=== PATIENT | female | born 1985 | race Caucasian/White ===

== ENCOUNTER 2019-07-22 14:49 | Emergency (ER) | payer BC, SELFPAY ==
--- NOTE | ~2019-07-22 | XR_ITS ---
EXAMINATION: XR ankle RT min 3V EXAM DATE: 07/22/2019 15:21 INDICATION: Initial encounter following injury, with pain of the right ankle. Fell yesterday. TECHNIQUE: Right ankle frontal, lateral and oblique projections obtained and reviewed. There is no p rior study for comparison. FINDINGS: The right ankle mortise appears intact. There are no acute fractures or dislocations iden tified. There is no subcutaneous gas. There is soft tissue swelling over the ankle laterally. Ther e are no radiopaque foreign bodies. IMPRESSION: 1. XR ankle RT min 3V exam without acute osseous findings. Reviewed, dictated and finalized at location B. [facility]
[2019-07-22 15:03] VITALS: BP 147/98; PULSE 82; RESP 18; TEMP 36.6; O2SAT 100
--- NOTE | 2019-07-22 15:23 | ED.LOWEXIN ---
HPI - Extremity Injury (Lower) General Chief Complaint: Extremity Injury, Lower Stated Complaint: Right Ankle Pain Time Seen by Provider: 07/22/19 15:11 Source: patient and RN notes reviewed Mode of arrival: ambulatory Limitations: no limitations History of Present Illness HPI Narrative: Patient presents today complaining of injury to her right ankle that was sustained yesterday while walking down some bleachers at her son's school. States she slipped and rolled the ankle. Reports some intermittent numbness and tingling in the ankle and foot. Currently rates her pain 4/10, which increases with movement and weightbearing. She has been ambulatory with increased pain. She has been taking Tylenol with mild relief. States she does not like cold objects and has not been applying ice. MD complaint: ankle injury Related Data Home Medications Medication Instructions Recorded Confirmed PNV,calcium 58-wlur-kfsxt acid tablet 07/22/19 [ Vitamin Plus Low Iron] aspirin 07/22/19 ergocalciferol (vitamin D2) 07/22/19 famotidine 07/22/19 insulin detemir U-100 [Levemir unit SUBCUT 07/22/19 FlexTouch U-100 Insuln] insulin lispro [Humalog KwikPen unit SUBCUT 07/22/19 Insulin] labetalol 07/22/19 metformin mg PO 07/22/19 montelukast mg 07/22/19 Allergies Allergy/AdvReac Type Severity Reaction Status Date / Time cephalexin Allergy Unknown Unknown Verified 07/22/19 15:12 venlafaxine Allergy Unknown Unknown Verified 07/22/19 15:12 CEPHALEXIN MONOHYDRATE Allergy Intermediate ANAPHALAXIS Uncoded 05/08/18 12:50 VENLAFAXINE HCL Allergy Intermediate RASH Uncoded 05/08/18 12:50 Review of Systems Review of Systems: Narrative: CONSTITUTIONAL: Denies body aches, fever, chills, or sweats. EYES: Denies visual changes, redness, or discharge. ENT: Denies rhinorrhea, congestion, sore throat, or otalgia. CARDIOVASCULAR: Denies chest pain, palpitations, or edema. RESPIRATORY: Denies cough or dyspnea. GASTROINTESTINAL: Denies abdominal pain, nausea, vomiting, or diarrhea. GENITOURINARY: Denies dysuria or hematuria. SKIN: Denies rash, itching, or wounds. MUSCULOSKELETAL: Denies back pain, or myalgia.+ Right ankle injury NEUROLOGIC: Denies headache, or weakness.+ Intermittent numbness and tingling to the right ankle and foot PSYCH: Denies depression or anxiety. [facility] Past Medical History Medical History (Updated 07/22/19 @ 15:39 by Migdalia Huertas, [facility], ) Diabetes Hypertension with history of section, antepartum Surgical History Surgical History (Updated 07/22/19 @ 15:26 by Migdalia Huertas, [facility], ) History of cholecystectomy Family History Family History (Updated 06/08/16 @ 10:17 by DOCTOR UNKNOWN) Mother Hypertension Family history of diabetes mellitus in first degree relative Grandparent Family history of cardiovascular disease Cerebrovascular accident Family history of diabetes mellitus in first degree relative Family history of lung cancer Other Family history of elevated blood lipids Family history of thyroid disease Social History Social History Smoking status: Never smoker Alcohol intake: never Comments At time of signature, I have reviewed and agree with nursing past medical, surgical, social and family history unless otherwise noted. Please see nursing chart for further information. There is no relevant family history pertinent to the presenting complaint Exam Narrative: Exam Narrative: GENERAL: Well-appearing, well-nourished, and in no acute distress. HEAD: Normocephalic, atraumatic. EYES: EOMI. No redness or drainage. Conjunctivae normal. ENT: Mucous membranes pink and moist. NECK: Normal AROM. CHEST: No respiratory distress. EXTREMITIES: Right ankle: Mild tenderness to the medial and lateral malleolus with scant edema. Tenderness to the anterior ankle that is more severe. No bony tenderness to the foot. No ecchymosis or erythema noted.
--- NOTE | 2019-07-22 15:50 | PC.NURSE ---
07/22/2019 1538 Chris wrap applied to right foot and ankle
[2019-07-22 15:51] VITALS: BP 119/58; PULSE 65; RESP 18; TEMP 37.4; O2SAT 100
== END 2019-07-22 15:38 | disposition home or self-care (01) ==
PROVIDERS: Emergency Provider Nurse Practitioner
DX: S93.401A Sprain of unspecified ligament of right ankle, initial encounter (principal); X50.9XXA Other and unspecified overexertion or strenuous movements or postures, initial encounter; X50.0XXA Overexertion from strenuous movement or load, initial encounter; E11.9 Type 2 diabetes mellitus without complications; I10 Essential (primary) hypertension
CPT/HCPCS: 73610; 99213; G0463

== ENCOUNTER 2020-07-18 13:10 | Outpatient (CLI) | payer OTHER, SELFPAY ==
[2020-07-18 14:06] LABS: Alanine Aminotransferase 108 U/L (4-35); Albumin Level 4.7 g/dL (3.5-5.1); Alkaline Phosphatase 64 U/L (38-126); Anion Gap 10 mmol/L (8-16); Aspartate Amino Transferase 55 U/L (14-36); Bilirubin,Total 0.4 mg/dL (0.2-1.3); Blood Urea Nitrogen 10 mg/dL (7-17); Calcium 10.1 mg/dL (8.4-10.2); Carbon Dioxide 24 mmol/L (22-30); Chloride 101 mmol/L (98-107); Estimated Glomerular Filt Rate > 60; Glucose 221 mg/dL (65-105); Potassium 4.5 mmol/L (3.4-5.0); Sodium 135 mmol/L (137-145)
[2020-07-18 14:08] LABS: Hemoglobin A1C 7.9 % (<5.7)
== END 2020-07-18 13:11 | disposition home or self-care (01) ==
PROVIDERS: PCP Family Medicine; Visit Provider Physician Assistant
DX: I10 Essential (primary) hypertension (principal); E11.9 Type 2 diabetes mellitus without complications
CPT/HCPCS: 36415; 80053; 83036

== ENCOUNTER 2020-07-19 12:10 | Observation (INO) | payer OTHER, SELFPAY ==
[2020-07-19] VITALS (22 sets, daily range): BP systolic 104–150; BP diastolic 53–101; PULSE 89–106; RESP 15–22; TEMP 36.1–36.7; O2SAT 91–100; BMI 41.7
--- NOTE | ~2020-07-19 | XR_ITS ---
EXAMINATION: XR abdomen/kub 1V EXAM DATE: 07/19/2020 17:07 INDICATION: Left flank pain left flank pain. TECHNIQUE: Frontal projection(s) of the abdomen for interpretation. Correlation is made to CT scan sa me date. FINDINGS: There is expected amount of colonic stool and gas. No small bowel dilation, nonobstructiv e bowel gas pattern. There are no suspicious calcifications identified. There is no organomegaly suspected. The bones are unremarkable. There are cholecystectomy clips. IMPRESSION: Unremarkable abdomen x-ray exam. Reviewed, dictated and finalized at location A. 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
--- NOTE | ~2020-07-19 | CT_ITS ---
EXAMINATION: CT abdomen pelvis wo con EXAM DATE: 07/19/2020 16:55 INDICATION: Left flank pain. TECHNIQUE: Spiral CT of the abdomen and pelvis was performed without contrast. Axial, coronal and sag ittal images were reviewed. The dose-length product (DLP) for this examination was 718.97 mGy-cm. T he exposure was tailored according to patient size (auto mA exposure control), and iterative reconstr uction (ASIR) was used as additional dose reduction technique. There is no prior study for compariso n. FINDINGS: There is punctate right calyceal stone. No ureteral stones or hydronephrosis. The uterus i s anteverted and morphologically normal. The bladder is undistended at time of imaging. There is h epatic steatosis without suspicious focal lesion identified. Spleen, adrenal glands, pancreas are unr emarkable. There are cholecystectomy clips. There is no retroperitoneal or pelvic lymphadenopathy. The appendix is not positively visualized. There is no pericecal inflammatory change to suggest appe ndicitis. The stomach and small bowel are unremarkable. There is expected amount of colonic stool. No free intraperitoneal gas. The heart is normal in size. There are no pericardial or pleural e ffusions. There is 4 mm right lower lobe noncalcified granuloma unchanged. Several smaller granuloma s. There are no significant osseous abnormalities identified. IMPRESSION: 1. Punctate right nephrolithiasis. No hydronephrosis or acute findings. 2. Hepatic steatosis. Reviewed, dictated and finalized at location A. NCE WHEEL FACER
--- NOTE | ~2020-07-19 | XR_ITS ---
EXAMINATION: XR chest 1V portable INDICATION: Chest pain TECHNIQUE: Portable AP chest at 1257 hours COMPARISON: 05/08/2018 FINDINGS: The lungs are free of acute opacities. There is no pleural effusion or pneumothorax. The ca rdiomediastinal silhouette is normal. The visualized osseous structures are unremarkable. IMPRESSION: 1. No acute cardiopulmonary abnormality. Reviewed, dictated and finalized at location A. UCTION FLOATER
--- NOTE | 2020-07-19 12:12 | ECG_ITS ---
Measurements Intervals Orting Rate: 102 P: 24 IN: 180 QRS: 14 QRSD: 76 T: 11 QT: 317 QTc: 414 Interpretive Statements SINUS TACHYCARDIA BORDERLINE R WAVE PROGRESSION, ANTERIOR LEADS BASELINE ARTIFACT- I, II, III, AVL, AVF BORDERLINE ECG Electronically Signed On 07-19-2020 16:22:51 SURFACE MOUNT TECHNOLOGY OPERATOR by Catracho Reardon D.O.
--- NOTE | 2020-07-19 12:31 | ED.GENADULT ---
HPI - General Adult General Chief complaint: Recheck/Abnormal Lab/Rx Stated complaint: CP, DIZZY, HIGH BS Time Seen by Provider: 07/19/20 12:21 Source: patient Mode of arrival: ambulatory Limitations: no limitations History of Present Illness HPI narrative: 34 years old white female presents with sudden onset of left upper chest pain, left upper extremity numbness, left visual pain, lightheadedness and dizziness started 1 hour prior to arrival to the emergency room. At rest. Patient was in the voodoo at that time. Patient denies having similar symptoms, nausea, vomiting, shortness of breath, back pain. History of diabetes, hypertension, obesity. Strong family history of coronary artery disease, mother and father. Patient denies any new stress or new physical activities. Patient denies aggravating or relieving factors of her pain. Patient denies smoking, drinking or using drugs. Patient tested positive for COVID-14 May 2020. Related Data Home Medications Medication Instructions Recorded Confirmed PNV,calcium 48-fsvw-xipuw acid 1 tablet PO DAILY 07/22/19 07/22/19 [ Vitamin Plus Low Iron] famotidine 40 mg PO HS 07/22/19 07/22/19 metformin 1,000 mg PO BID 07/22/19 07/22/19 cariprazine 1.5 mg capsule 1.5 mg PO DAILY 04/16/20 cholecalciferol (vitamin D3) 1,250 1,250 mcg PO WEEKLY 04/16/20 mcg (50,000 unit) capsule clonazepam 0.5 mg tablet 0.5 mg PO DAILY 04/16/20 lamotrigine 100 mg tablet 100 mg PO DAILY 04/16/20 Allergies Allergy/AdvReac Type Severity Reaction Status Date / Time cephalexin [From Keflex] Allergy Mild Unknown Verified 04/17/20 08:58 venlafaxine [From Effexor] Allergy Mild Unknown Verified 04/17/20 08:58 CEPHALEXIN MONOHYDRATE Allergy Intermediate ANAPHALAXIS Uncoded 04/17/20 08:58 VENLAFAXINE HCL Allergy Intermediate RASH Uncoded 04/17/20 08:58 Review of Systems Review of Systems: Narrative: CONSTITUTIONAL: Denies fever, chills, or sweats. EYES: Denies visual changes, redness, or discharge. ENT: Denies rhinorrhea, congestion, sore throat, or otalgia. CARDIOVASCULAR: Denies chest pain, palpitations, or edema. RESPIRATORY: Denies cough or dyspnea. GASTROINTESTINAL: Denies abdominal pain, nausea, vomiting, or diarrhea. GENITOURINARY: Denies dysuria or hematuria. SKIN: Denies rash or itching. MUSCULOSKELETAL: Denies back pain, joint pain, or myalgia. NEUROLOGIC: Denies headache, numbness, or weakness. PSYCHIATRIC: Denies anxiety or depression. PMFSH Past Medical History Medical History Bipolar 1 disorder delivery delivered Diabetes Gallbladder & bile duct stone with obstruction Hypertension with history of section, antepartum Surgical History Surgical History H/O removal of cyst History of cholecystectomy Family History Family History Mother Hypertension Diabetes mellitus Asthma Depression Anxiety Heart disease Father Diabetes mellitus Hypertension Kidney disease Heart disease Heart attack Mother Hypertension Family history of diabetes mellitus in first degree relative Grandparent Family history of cardiovascular disease Cerebrovascular accident Family history of diabetes mellitus in first degree relative Family history of lung cancer Other Family history of elevated blood lipids Family history of thyroid disease Social History Social History Smoking status: Never smoker Smokeless tobacco user: other Second hand tobacco smoke exposure: No Alcohol intake: never Substance use: unknown Gender identity (if verbalized by the patient): Female Spiritual care concerns: No Exam Narrative: Exam Narrative: General appearance: Well-developed, well-nourished Skin: Normal color Head: Normocephalic, nontraumati
[2020-07-19 12:35] LABS: Basophils Absolute Auto 0.1 K/mm3 (0.0-0.1); Basophils Percent Auto 0.6 % (0.2-1.2); Eosinophils Absolute Auto 0.1 K/mm3 (0-0.3); Eosinophils Percent Auto 1.4 % (0-4.4); Hemoglobin 11.2 g/dL (12.0-15.0); Immature Granulocyte Absolute 0.02 K/mm3 (0.00-0.031); Immature Granulocyte Percent A 0.2 % (0-0.5); Lymphocytes Absolute Auto 2.66 K/mm3 (0.9-3.2); Lymphocytes Percent Auto 28.7 % (18.3-44.2); Mean Corpuscular Hemoglobin 24.8 pg (26-34); Mean Corpuscular Volume 77.6 fl (80-100); Mean Platelet Volume 10.1 fl (7.4-10.4); Monocytes Absolute Auto 0.6 K/mm3 (0.1-0.6); Monocytes Percent Auto 6.5 % (2.6-8.5); Neutrophils Absolute Auto 5.8 K/mm3 (1.3-6.7); Neutrophils Percent Auto 62.6 % (45.5-73.1); Platelet Count Result 459 k/mm3 (150-375); Red Blood Count 4.51 M/mm3 (4.2-5.4); Red Cell Distribution Width 14.6 % (11.5-14.5); White Blood Count 9.3 K/mm3 (4.5-10.0)
[2020-07-19] MEDS: ASPIRIN 81 MG CHEWABLE TABLET 324 MG PO (12:52)
[2020-07-19] MEDS: ONDANSETRON INJ 4 MG/2 ML VIAL IV PUSH (12:52)
[2020-07-19] MEDS: MORPHINE SULFATE (*CRX) 4 MG/ML INJ IV PUSH ×3 (12:52→21:04)
[2020-07-19 13:06] LABS: Alanine Aminotransferase 109 U/L (4-35); Albumin Level 4.7 g/dL (3.5-5.1); Alkaline Phosphatase 62 U/L (38-126); Anion Gap 12 mmol/L (8-16); Aspartate Amino Transferase 67 U/L (14-36); Bilirubin,Total 0.8 mg/dL (0.2-1.3); Blood Urea Nitrogen 14 mg/dL (7-17); Calcium 9.6 mg/dL (8.4-10.2); Carbon Dioxide 24 mmol/L (22-30); Chloride 99 mmol/L (98-107); Estimated CRCL calculation 157 ml/min; Estimated Glomerular Filt Rate > 60; Glucose 235 mg/dL (65-105); Potassium 4.7 mmol/L (3.4-5.0); Sodium 135 mmol/L (137-145)
[2020-07-19 13:11] LABS: Troponin I < 0.012 ng/mL (0.000-0.034)
[2020-07-19 13:35] LABS: Glucose Point of Care 230 (65-105)
[2020-07-19 13:49] LABS: Prothrombin Time 13.7 Seconds (11.1-14.7)
[2020-07-19 13:50] LABS: Partial Thromboplastin Time 28.7 SECONDS (22.3-36.8)
[2020-07-19 14:15] LABS: D Dimer 0.27 ug/mL (<0.48)
[2020-07-19] MEDS: INSULIN HUMAN REGULAR (*BKC) 100 UNITS/ML 6 UNITS SUB-Q (14:51)
[2020-07-19 15:30] LABS: Add Urine Microscopic? YES; Appearance Urine Clear (Clear); Bacteria Urine Trace /hpf; Bilirubin Urine Negative (Negative); Blood Urine Negative (Negative); Color Urine Yellow (Yellow); Glucose Urine UA Negative (Negative); Ketones Urine Trace mg/dL (Negative); Leukocyte Esterase Ur Negative LEU/UL (Negative); Mucus Urine Few /lpf; Nitrate Urine Negative (Negative); Protein Urine 2+ mg/dL (Negative); RBC Urine 0-2 /hpf (0-2); Squamous Epithelial Cell Urine Moderate /hpf (Few); Urobilinogen Urine Negative mg/dL (<2.0); WBC Urine 0-3 /hpf
[2020-07-19 15:59] LABS: Specific Grav Ur 1.034 (1.001-1.035)
--- NOTE | 2020-07-19 16:00 | WPDCN ---
Assessment and Plan Assessment and plan (1) Atypical chest pain: Code(s): R07.89 - Other chest pain Status: Acute (2) Nephrolithiasis: Code(s): N20.0 - Calculus of kidney Status: Acute (3) Hypertension: Qualifiers: Hypertension type: essential hypertension Qualified Code(s): I10 - Essential (primary) hypertension Code(s): I10 - Essential (primary) hypertension Status: Acute (4) Type 2 diabetes mellitus: Code(s): E11.9 - Type 2 diabetes mellitus without complications Status: Inactive (5) Anxiety: Code(s): F41.9 - Anxiety disorder, unspecified Status: Inactive (6) Gastroesophageal reflux disease: Code(s): K21.9 - Gastro-esophageal reflux disease without esophagitis Status: Inactive (7) Bipolar 1 disorder: Code(s): F31.9 - Bipolar disorder, unspecified Status: Acute (8) Elevated LFTs: Code(s): R79.89 - Other specified abnormal findings of blood chemistry Status: Acute (9) Microcytic anemia: Code(s): D50.9 - Iron deficiency anemia, unspecified Status: Acute Additional Plan The patient has been admitted to Dr. Taveras (cardiology) with chest pain, atypical for cardiac pain although she does have risk factors. Will continue to trend troponins and monitor on telemetry overnight. She then developed left-sided flank pain and in the setting of hematuria, as CT of the abdomen and pelvis was obtained which demonstrated punctate right nephrolithiasis which does not correlate with her symptoms. I am wondering if this is more musculoskeletal in etiology. In any event, her glucose has not been very well controlled recently for unclear reasons, with the most recent hemoglobin A1c of 7.9%. She may need the addition of another oral medication but I will defer that to her primary care provider. In the interim we will initiate sliding scale insulin, Accu-Cheks, and hypoglycemic protocol. Her blood pressures were reviewed and they are stable. LFTs are bit elevated, likely due to hepatic steatosis noted on imaging. She has a mild microcytic anemia, thus will check iron studies although she is a menstruating female and may simply be due to that. Thank you for allowing us to participate in this patient's care. Please do not hesitate to contact us with any questions. We will follow with you. Supervising physician for this medical consultation is Dr. Michael Daniels. This document was completed by using [employer] speech recognition software, therefore senior research project manager variances may occur. Despite proofreading, typographical errors may also occur. HPI Data of Consult Date/Time: 07/19/20 16:00 Requesting Physician: Jhon Taveras MD Primary Care Provider: Melani Lyles MD Consult Narrative Narrative: This is a 34-year-old morbidly obese female with type 2 diabetes mellitus, hypertension, and GERD who presented to the emergency department earlier today from home with complaints of left-sided chest pain radiating to the jaw and arm. Given her risk factor in the setting of chest pain, she was admitted to Dr. Taveras (cardiology) to rule out acute coronary syndrome. The hospitalist service has been consulted for management of her medical conditions. She was at worship this morning when she suddenly developed stabbing, left upper chest pain. She had some numbness and tingling in the left side of her jaw and left upper extremity at the same time and was also feeling a bit short of breath with nausea and dizziness. She goes on to say that she has felt ?off? for approximately 1 week and has noted that her glucose is much higher than usual, as high as 310 earlier in the week. At the time my evaluation she is not having any active chest discomfort but instead has sharp, stabbing pain in the left flank and she has also noticed hematuria. With further questioning, she does have a history of kidney stones and is rating this
[2020-07-19] MEDS: ENOXAPARIN 120 MG/0.8 ML SYRINGE 110 MG SUB-Q (16:27)
[2020-07-19 17:45] LABS: Troponin I < 0.012 ng/mL (0.000-0.034)
--- NOTE | 2020-07-19 18:07 | ADMGEN ---
This patient, Nina Aguilera, was admitted to [facility] OVERFLOW STATUS. ARRIVES VIA TO [facility] AT 1807. Patient/family oriented to hospital policies and general routines including ID bracelet, bed and alarms, visiting hours, pain management, procedures, bathroom and other care routines, personal items, smoking policy, room service/diet, and visiting hours. Information on how to activate the Rapid Response Team has been discussed. Patient/Family are encouraged to report perceived risks to care and to ask questions if they do not understand what they are told or what they should do.
[2020-07-19 19:24] LABS: Glucose Point of Care 157 (65-105)
[2020-07-19 19:26] LABS: Troponin I < 0.012 ng/mL (0.000-0.034)
[2020-07-19] MEDS: LABETALOL HCL 100 MG TABLET 300 MG PO (22:30)
[2020-07-19] MEDS: PANTOPRAZOLE 40 MG TABLET PO (22:30)
[2020-07-19] MEDS: lamoTRIgine 100 MG TABLET PO (22:30)
[2020-07-19] MEDS: MONTELUKAST SODIUM 10 MG TABLET PO (22:30)
[2020-07-19 22:45] LABS: Immature Reticulocyte Fraction 30.1 % (3.0-15.9); Reticulocyte Hemoglobin Conten 24.6 pg (28.2-35.7); Reticulocyte Percent 1.83 % (0.7-4.3); Reticulocytes Absolute 0.08 B/L (32.2-175.7)
[2020-07-19 23:36] LABS: Iron 57 ug/dL (37-170)
[2020-07-19 23:46] LABS: Percent Iron Saturation 11 % (20-50)
[2020-07-20] VITALS (31 sets, daily range): BP systolic 112–157; BP diastolic 68–100; PULSE 84–106; RESP 12–19; TEMP 36.3–36.9; O2SAT 96–100
[2020-07-20 00:06] LABS: Folic Acid > 20.0 ng/mL (2.76->20)
[2020-07-20 00:13] LABS: Ferritin 9.91 ng/mL (6.24-137)
[2020-07-20] MEDS: MORPHINE SULFATE (*CRX) 4 MG/ML INJ IV PUSH ×3 (00:13→08:40)
[2020-07-20 06:15] LABS: Hematocrit 32.6 % (37.0-47.0); Hemoglobin 10.3 g/dL (12.0-15.0); Mean Corpuscular HGB Conc 31.6 g/dl (32-36); Mean Corpuscular Hemoglobin 24.1 pg (26-34); Mean Corpuscular Volume 76.3 fl (80-100); Mean Platelet Volume 10.3 fl (7.4-10.4); Platelet Count Result 456 k/mm3 (150-375); Red Blood Count 4.27 M/mm3 (4.2-5.4); Red Cell Distribution Width 14.6 % (11.5-14.5); White Blood Count 8.2 K/mm3 (4.5-10.0)
[2020-07-20 06:24] LABS: Alanine Aminotransferase 122 U/L (4-35); Albumin Level 4.3 g/dL (3.5-5.1); Alkaline Phosphatase 61 U/L (38-126); Anion Gap 10 mmol/L (8-16); Aspartate Amino Transferase 91 U/L (14-36); Bilirubin,Total 0.8 mg/dL (0.2-1.3); Blood Urea Nitrogen 15 mg/dL (7-17); Calcium 8.5 mg/dL (8.4-10.2); Carbon Dioxide 27 mmol/L (22-30); Chloride 94 mmol/L (98-107); Estimated CRCL calculation 159 ml/min; Estimated Glomerular Filt Rate > 60; Glucose 198 mg/dL (65-105); Magnesium 1.4 mg/dL (1.6-2.3); Potassium 4.2 mmol/L (3.4-5.0); Sodium 131 mmol/L (137-145)
[2020-07-20] MEDS: ASPIRIN 81 MG ENTERIC TABLET PO (08:40)
[2020-07-20] MEDS: lisinopriL 5 MG TABLET PO (08:40)
[2020-07-20] MEDS: ARIPiprazole 2 MG TABLET PO (08:40)
[2020-07-20] MEDS: MULTIVITAMINS THERAPEUTIC TAB (*BKC) 1 TABLET PO (08:40)
[2020-07-20] MEDS: lamoTRIgine 100 MG TABLET PO ×2 (08:40→21:04)
[2020-07-20] MEDS: LABETALOL HCL 100 MG TABLET 300 MG PO ×2 (08:41→21:04)
[2020-07-20] MEDS: NITROGLYCERIN SL 0.4 MG TABLET SUBLINGUAL (09:30)
--- NOTE | 2020-07-20 09:30 | PM.IMHP ---
H&P: HPI History of Present Illness Date/Time: 07/20/20 09:30 Chief Complaint: Chest pain Narrative: Nina Aguilera is a 34 year old female with history of morbid obesity, HTN, DM since 2006, CVA (no deficits, incidental finding on MRI) who presents with chest pain. pain started at noon yesterday, felt like pressure, heaviness as someone sitting on her chest that radiates to the left arm and up to the jaw. It is associated with dyspnea and diaphoresis. Since then she continues to have the chest pain but it has improved after received morphine. She was seen previously by Dr Albright in Apr 2018 for chest pain and at that time she underwent stress echo with no ischemia. Also had Holter that showed sinus tachycardia and run of 10 beats of NSVT. She used to weigh 350 pounds, now down to 240 pounds Never smoker. Her mother had stents in her 40s. Review of Systems Review of Systems: All systems reviewed & are unremarkable except as noted in HPI and below Constitutional: Constitutional: Denies fatigue and Denies headache(s) Eyes: Eyes: Denies blurry vision ENT: Reports Normal hearing present and Denies headache(s) Cardiovascular: Cardiovascular: Denies chest pain, Denies diaphoresis, Denies pedal edema, Denies leg edema, Denies lightheadedness, Denies palpitations and Denies dyspnea Respiratory: Respiratory: Denies cough and Denies dyspnea Gastrointestinal: Gastrointestinal: Denies abdominal pain Musculoskeletal: Musculoskeletal: Denies back pain Neurologic: Reports Normal hearing present and Denies headache(s) Psychiatric: Psychiatric: Denies anxiety Endocrine: Endocrine: Denies fatigue and Denies palpitations [facility] Past Medical History Medical History (Updated 07/19/20 @ 22:19 by Flora Mckenna PA-C) Anxiety Bipolar 1 disorder Gastroesophageal reflux disease Hypertension Type 2 diabetes mellitus Hemoglobin A1c was 7.9% on 07/18/2020. Surgical History Surgical History (Updated 07/19/20 @ 22:13 by Flora Mckenna PA-C) History of 3 sections History of cholecystectomy History of dilation and curettage History of right oophorectomy Family History Family History Mother Hypertension Diabetes mellitus Asthma Depression Anxiety Heart disease Father Diabetes mellitus Hypertension Kidney disease Heart disease Heart attack Mother Hypertension Family history of diabetes mellitus in first degree relative Grandparent Family history of cardiovascular disease Cerebrovascular accident Family history of diabetes mellitus in first degree relative Family history of lung cancer Other Family history of elevated blood lipids Family history of thyroid disease Social History Social History (Updated 07/19/20 @ 22:14 by Flora Mckenna PA-C) Social History: The patient is and lives with her and 3 children in [place]. She has a stepdaughter who is at home with them occasionally as well. He is not currently employed. Lifelong nonsmoker. No alcohol or illicit substance use. She designates her Vick as her surrogate decision maker and she wishes to be a full code. Spiritual care concerns: No Meds Home Medications and Allergies Home Medications Medication Instructions Recorded Confirmed Type metformin 1,000 mg PO BID 07/22/19 07/19/20 History cholecalciferol (vitamin D3) 1,250 1,250 mcg PO WEEKLY 04/16/20 07/19/20 History mcg (50,000 unit) capsule labetalol 300 mg tablet 300 mg PO Q12H #180 tablet 04/16/20 07/19/20 Rx lamotrigine 100 mg tablet 100 mg PO BID 04/16/20 07/19/20 History montelukast 10 mg tablet 10 mg PO DAILY #90 tablet 04/16/20 07/19/20 Rx aspirin 81 mg tablet,delayed 81 mg PO DAILY #90 tablet 04/17/20 07/19/20 Rx release lisinopril 5 mg tablet 5 mg PO DAILY #30 tablet 05/18/20 07/19/20 Rx omeprazole 40 mg capsule,delayed 40 mg PO DAILY #30 cap
[2020-07-20 10:19] LABS: Glucose Point of Care 270 (65-105)
--- NOTE | 2020-07-20 14:11 | PM.IMPN ---
Progress Note: A&P Assessment and Plan (1) Atypical chest pain: Code(s): R07.89 - Other chest pain Status: Acute Assessment and Plan: Will go for L heart cath Follow Cardiology recs. (2) Hypertension: Qualifiers: Hypertension type: essential hypertension Qualified Code(s): I10 - Essential (primary) hypertension Code(s): I10 - Essential (primary) hypertension Status: Acute Assessment and Plan: Continue home meds Continue to monitor (3) Diabetes: Qualifiers: Diabetes mellitus type: type 2 Diabetes mellitus knife edger insulin use: without correction use Diabetes mellitus complication status: without complication Qualified Code(s): E11.9 - Type 2 diabetes mellitus without complications Code(s): E11.9 - Type 2 diabetes mellitus without complications Status: Acute Assessment and Plan: Accu checks ACHS ISS as needed Carb consistent diet (4) Elevated LFTs: Code(s): R79.89 - Other specified abnormal findings of blood chemistry Status: Acute Assessment and Plan: Likely secondary to fatty liver disease (5) Nephrolithiasis: Code(s): N20.0 - Calculus of kidney Status: Acute Assessment and Plan: Stable (6) Microcytic anemia: Code(s): D50.9 - Iron deficiency anemia, unspecified Status: Acute Assessment and Plan: Follow up in the outpatient setting. Subjective Date/time seen: 07/20/20 14:11 I feel fine No events overnight Review of Systems Review of Systems: Narrative: Patient presented to ED due to chest pain. Constitutional: Comments: Intentional weight loss of roughly 90 pounds. ENT: Comments: no nasal congestion. Cardiovascular: Comments: chest pain on/off. Respiratory: Comments: no sob. Gastrointestinal: Comments: no n/v/abdominal pain. Musculoskeletal: Comments: no muscle aches or pain. Integumentary/Breasts: Comments: no rashes. Neurologic: Comments: no sensory motor deficit. Exam Narrative: Exam Narrative: Lying in bed Const: General: comfortable, no acute distress, alert, awake and Physically active Nutritional Appearance: overweight and other Orientation/consciousness: patient oriented x3 HENMT: Head: normocephalic Face and sinus: normal facial exam Eyes: General: appearance normal, both eyes and all related structures Pupils: Equal, round and reactive pupils present EOM: EOMs intact bilaterally Neck: Neck: no lymphadenopathy, supple and no JVD Resp: Auscultation: clear to auscultation bilaterally Cardio: Jugular venous distension: no JVD Rate: regular rate Rhythm: regular rhythm GI: Inspection: Pannus present Skin: Rashes: no rashes Neuro: General: patient oriented x3 and CN's II-XI intact bilaterally Cranial nerves: Yes CN's II-XII intact bilaterally and Yes Equal, round and reactive pupils present Cognition (Neuro): normal cognition Speech: normal speech Motor exam (neuro): 5/5 motor strength present throughout Extrem: General: no pedal edema Objective Data Vital Signs Vital Signs: Vital Signs - 24 hr 07/19/20 17:37 07/19/20 18:26 07/19/20 18:30 Temperature 98.1 F Pulse Rate 89 95 104 H Respiratory Rate 18 18 Blood Pressure 112/75 119/88 Pulse Oximetry 99 98 07/19/20 20:00 07/19/20 21:06 07/19/20 22:00 Temperature 97 F L Pulse Rate 100 99 Respiratory Rate 20 Blood Pressure 150/101 H 141/91 H Pulse Oximetry 100 07/19/20 22:30 07/20/20 00:00 07/20/20 02:00 Temperature 97.8 F Pulse Rate 95 94 85 Respiratory Rate 17 Blood Pressure 157/99 H Pulse Oximetry 99 07/20/20 04:00 07/20/20 06:00 07/20/20 08:00 Temperature 97.3 F L 97.5 F L Pulse Rate 96 86 85 Respiratory Rate 16 13 Blood Pressure 135/86 135/100 H Pulse Oximetry 97 96 07/20/20 08:41 07/20/20 10:00 07/20/20 12:00 Temperature 97.5 F L Pulse Rate 98 93 95 Respiratory Rate 14 Blood Pressure 115/86 Pulse O
--- NOTE | 2020-07-20 15:43 | WPDMODSED ---
Moderate Sedation Note-Pt Data Patient Data Allergies Allergy/AdvReac Type Severity Reaction Status Date / Time cephalexin [From Keflex] Allergy Severe Anaphylaxis Verified 07/19/20 17:39 venlafaxine [From Effexor] Allergy Intermediate Rash Verified 07/19/20 17:39 Home Medications Medication Instructions Recorded Confirmed Type metformin 1,000 mg PO BID 07/22/19 07/19/20 History cholecalciferol (vitamin D3) 1,250 1,250 mcg PO WEEKLY 04/16/20 07/19/20 History mcg (50,000 unit) capsule labetalol 300 mg tablet 300 mg PO Q12H #180 tablet 04/16/20 07/19/20 Rx lamotrigine 100 mg tablet 100 mg PO BID 04/16/20 07/19/20 History montelukast 10 mg tablet 10 mg PO DAILY #90 tablet 04/16/20 07/19/20 Rx aspirin 81 mg tablet,delayed 81 mg PO DAILY #90 tablet 04/17/20 07/19/20 Rx release lisinopril 5 mg tablet 5 mg PO DAILY #30 tablet 05/18/20 07/19/20 Rx omeprazole 40 mg capsule,delayed 40 mg PO DAILY #30 cap 05/25/20 07/19/20 Rx release albuterol sulfate [ProAir HFA] 1 - 2 inh INHALATION Q4H PRN 07/19/20 07/19/20 History aripiprazole [Abilify] 2 mg PO DAILY 07/19/20 07/19/20 History multivitamin [Daily Multi-Vitamin] 1 tablet PO DAILY 07/19/20 07/19/20 History Current Medications: Active Medications Albuterol (Albuterol Sulfate (*Sp) Aerosol 1 Puff) 1 - 2 puff INHALATION Q4H PRN PRN Reason: shortness of breath or wheezing Aripiprazole (Aripiprazole 2 Mg Tablet) 2 mg PO DAILY [facility] Last Admin: 07/20/20 08:40 Dose: 2 mg Documented by: Aspirin (Aspirin 81 Mg Enteric Tablet) 81 mg PO DAILY [facility] Last Admin: 07/20/20 08:40 Dose: 81 mg Documented by: Labetalol HCl (Labetalol Hcl 100 Mg Tablet) 300 mg PO Q12HR [facility] Last Admin: 07/20/20 08:41 Dose: 300 mg Documented by: Lamotrigine (Lamotrigine 100 Mg Tablet) 100 mg PO Q12HR [facility] Last Admin: 07/20/20 08:40 Dose: 100 mg Documented by: Lisinopril (Lisinopril 5 Mg Tablet) 5 mg PO DAILY [facility] Last Admin: 07/20/20 08:40 Dose: 5 mg Documented by: Montelukast Sodium (Montelukast Sodium 10 Mg Tablet) 10 mg PO [facility] Last Admin: 07/19/20 22:30 Dose: 10 mg Documented by: Morphine Sulfate (Morphine Sulfate (*Crx) 4 Mg/Ml Inj) 4 mg IV PUSH Q2H PRN PRN Reason: Pain Rated 7-10 Last Admin: 07/20/20 08:40 Dose: 4 mg Documented by: Multivitamins Therapeutic (Multivitamins Therapeutic Tab (*Bkc)) 1 tablet PO DAILY [facility] Last Admin: 07/20/20 08:40 Dose: 1 tablet Documented by: Nitroglycerin (Nitroglycerin Sl 0.4 Mg Tablet) 0.4 mg SUBLINGUAL Q5MIN PRN PRN Reason: Chest Pain Last Admin: 07/20/20 09:30 Dose: 0.4 mg Documented by: Pantoprazole Sodium (Pantoprazole 40 Mg Tablet) 40 mg PO [facility] Last Admin: 07/19/20 22:30 Dose: 40 mg Documented by: Sedation/Anesthesia: No previous sedation/anesthesia problems (including family history). [facility] Past Medical History Medical History (Updated 07/19/20 @ 22:19 by Flora Mckenna PA-C) Anxiety Bipolar 1 disorder Gastroesophageal reflux disease Hypertension Type 2 diabetes mellitus Hemoglobin A1c was 7.9% on 07/18/2020. Surgical History Surgical History (Updated 07/19/20 @ 22:13 by Flora Mckenna PA-C) History of 3 sections History of cholecystectomy History of dilation and curettage History of right oophorectomy Family History Family History Mother Hypertension Diabetes mellitus Asthma Depression Anxiety Heart disease Father Diabetes mellitus Hypertension Kidney disease Heart disease Heart attack Mother Hypertension Family history of diabetes mellitus in first degree relative Grandparent Family history of cardiovascular disease Cerebrovascular accident Family history of diabetes mellitus in first degree relative Family history of lung cancer Other Family history of elevated blood lipids Family history of thyroid disease Social History Social History (Updated 07/19/20 @ 22:14 by Flora Davila
--- NOTE | 2020-07-20 16:00 | PC.NURSE ---
Patient off floor for procedure will do 1600 Assessment and Vitals upon return to unit
--- NOTE | 2020-07-20 16:24 | P.PCNCC_ITS ---
Cardiac Cath Procedure Note Date of procedure:: 07/20/20 Performing physician:: Jhon Taveras MD Procedures: 1. Left heart catheterization, selective coronary angiogram. 2. Left ventricular angiogram. 3. Conscious sedation. 4. Right common femoral artery angiogram Campus Executive Director: Dr. John Taveras Complications: None. Sedation: Conscious sedation, local anesthesia, using 2 mg of Versed said, 75 mcg of fentanyl, and using 1% lidocaine for local anesthesia. History: 34 years old woman with history of poorly controlled diabetes mellitus, came to the hospital because of chest pain previously she had stress test which was reported negative but due to recurrent episode of chest pain and significant risk factors for coronary disease was brought to the hospital seed laboratory assistant for elective cardiac catheterization for definite diagnosis of coronary disease Technique: After informed consent was obtained from patient, was brought to the seed laboratory assistant, put in the seed laboratory assistant table, prepped and draped in usual sterile fashion. Five [place] sheath was inserted into the right common femoral artery, through the sheath 5 [place] JL4 catheter inserted, advanced to the left coronary artery, left coronary artery angiogram was obtained. The catheter was exchanged over guidewire into a 5 [place] JR4 catheter, advanced to the right coronary artery, right coronary artery angiogram was obtained. The catheter then was exchanged over guidewire into this 5 [place] pigtail catheter, advanced to left ventricle, left ventricular angiogram was obtained. The catheter then was pulled, the sheath was pulled applying manual pressure for arterial hemostasis. Patient tolerated the procedure no complication, taken from the seed laboratory assistant to his room in stable condition stable vital signs. Initial access was done with a needle but could not thread the wire due to proximity to a small branch, subsequently I had to go slightly higher to get to the main vessel in the common femoral artery, at the end of the procedure we did angiogram to see for possible Angio-Seal, however it seems that the axis is very close to a small branch, due to that it was felt that is not safe to use Angio- Seal in the setting the fear of occluding that branch. Hemodynamics: aortic pressure 127/60 . LV pressure 126/04 with LVEDP of 18 mmHg Angiographic findings: Left main: Medium size artery no significant disease or stenosis. Lad medium size artery showed No significant disease or stenosis Left circumflex artery, medium size artery, no significant disease or stenosis. RCA: non dominant vessel showed no significant disease or stenosis LV: Normal size left ventricle with normal left ventricular systolic function. Summary: no significant coronary artery disease, normal left ventricular systolic function Recommendation: Maximum medical treatment. Risk factor modification, workup for noncardiac chest pain
[2020-07-20 16:51] LABS: Cholesterol 135 mg/dL (0-200); HDL Direct 31 mg/dL; Triglycerides 204 mg/dL (<150)
[2020-07-20 17:02] LABS: LDL Cholesterol Direct 86 mg/dL
[2020-07-20] MEDS: SODIUM CHLORIDE 0.9% IV 1,000 ML 125 ML IV CONT (18:57)
[2020-07-20] MEDS: MONTELUKAST SODIUM 10 MG TABLET PO (21:04)
[2020-07-20] MEDS: PANTOPRAZOLE 40 MG TABLET PO (21:04)
[2020-07-20 21:10] LABS: Glucose Point of Care 245 (65-105)
[2020-07-20] MEDS: traMADol HCL (*CRX) 50 MG TABLET 25 MG PO (21:55)
[2020-07-21] VITALS (7 sets, daily range): BP systolic 139–147; BP diastolic 93–105; PULSE 90–108; RESP 14–15; TEMP 36.6–36.7; O2SAT 99
[2020-07-21] MEDS: MULTIVITAMINS THERAPEUTIC TAB (*BKC) 1 TABLET PO (08:23)
[2020-07-21] MEDS: LABETALOL HCL 100 MG TABLET 300 MG PO (08:23)
[2020-07-21] MEDS: lisinopriL 5 MG TABLET PO (08:23)
[2020-07-21] MEDS: lamoTRIgine 100 MG TABLET PO (08:23)
[2020-07-21] MEDS: ARIPiprazole 2 MG TABLET PO (08:24)
--- NOTE | 2020-07-21 08:40 | PM.DS ---
DS: Admitting Diagnosis Admitting Diagnosis Admitting Diagnosis: Chest pain DS: Discharge Diagnosis Discharge Diagnosis (1) Chest pain: Qualifiers: Chest pain type: unspecified Qualified Code(s): R07.9 - Chest pain, unspecified Code(s): R07.9 - Chest pain, unspecified Status: Acute Assessment and Plan: She ruled out for MD with negative trop X 3 Her chest pain has anginal features and with her multiple risk factors including poorly controlled DM, obesity and very strong family history she will need further eval for risk stratification. She had relatively recent stress test (Apr 2018). Given her ongoing chest pain and risk factors she underwent LHC. She was found to have no significant coronary artery disease with co-dominant system . (2) Hypertension: Qualifiers: Hypertension type: essential hypertension Qualified Code(s): I10 - Essential (primary) hypertension Code(s): I10 - Essential (primary) hypertension Status: Acute Assessment and Plan: Resume home antihypertensives. (3) Diabetes: Qualifiers: Diabetes mellitus type: type 2 Diabetes mellitus [facility] insulin use: without [facility] use Diabetes mellitus complication status: without complication Qualified Code(s): E11.9 - Type 2 diabetes mellitus without complications Code(s): E11.9 - Type 2 diabetes mellitus without complications Status: Acute Assessment and Plan: She need close follow up with her PCP and possible adjustment of her meds DS: Summary Hospital Course Hospital Course: see above Time Spent with Patient Time attestation: Total time spent providing and/or coordinating discharge services: Exam Const: General: no acute distress Eyes: Sclera: sclerae normal Neck: Neck: no JVD Carotids: no bruits Resp: Effort & Inspection: normal respiratory effort Auscultation: clear to auscultation bilaterally Cardio: Rate: regular rate and not tachycardic Rhythm: regular rhythm Heart sounds: no gallops, no murmurs and no rubs Skin: General skin exam: normal color Neuro: Cranial nerves: Yes Normal hearing present Speech: normal speech Extrem: General: normal to inspection and no edema Psych: Affect: normal affect DS: Data Data Completed and Pending Labs on day of discharge: Labs from last 24 hours 07/20/20 07/20/20 07/20/20 21:08 16:31 10:16 POC Capillary Glucose 245 H 270 H Triglycerides 204 H Cholesterol 135 LDL Cholesterol Direct 86 HDL Direct 31 Discharge Plan Discharge Attending physician on discharge: Jhon Taveras Consulting providers: Michael Daniels Discharging Clinician: Jhon Taveras Patient Disposition: Home, Self-Care Activity: unlimited Diet: diabetic Wound Care Instructions: keep dressing dry Patient Instructions: Antibiotic Form Stand Alone Forms: General Discharge Information Follow-up/Referrals: Jhon Taveras MD [Physician] - Discharge Medications: No Action metformin 500 mg tablet extended release 24 hr 1,000 mg PO BID RF: 0 labetalol 300 mg tablet 300 mg PO Q12H Qty: 180 RF: 2 montelukast 10 mg tablet 10 mg PO DAILY Qty: 90 RF: 2 lamotrigine 100 mg tablet 100 mg PO BID RF: 0 cholecalciferol (vitamin D3) 1,250 mcg (50,000 unit) capsule 1,250 mcg PO WEEKLY RF: 0 aspirin 81 mg tablet,delayed release (DR/EC) 81 mg PO DAILY Qty: 90 RF: 0 albuterol sulfate [ProAir HFA] 90 mcg/actuation HFA aerosol inhaler 1 - 2 inh inhalation Q4H PRN (Reason: shortness of breath or wheezing) RF: 0 multivitamin [Daily Multi-Vitamin] Tablet 1 tablet PO DAILY RF: 0 aripiprazole [Abilify] 2 mg Tablet 2 mg PO DAILY RF: 0 lisinopril 5 mg tablet 5 mg PO DAILY Qty: 30 RF: 2 omeprazole 40 mg capsule,delayed release(DR/EC) 40 mg PO DAILY Qty: 30 RF: 1 Date of admission: 07/19/20 15:26 Primary Care Provider: Melani Lyles
--- NOTE | 2020-07-21 11:26 | PM.DS ---
DS: Admitting Diagnosis Admitting Diagnosis Admitting Diagnosis: Chest pain DS: Discharge Diagnosis Discharge Diagnosis (1) Atypical chest pain: Code(s): R07.89 - Other chest pain Status: Acute Assessment and Plan: Will go for L heart cath Continue small ASA on dischrage Heart cath shows - no significant coronary artery disease, normal left ventricular systolic function (2) Hypertension: Qualifiers: Hypertension type: essential hypertension Qualified Code(s): I10 - Essential (primary) hypertension Code(s): I10 - Essential (primary) hypertension Status: Acute Assessment and Plan: Continue home meds, Bp slightly high. 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 (6) Microcytic anemia: Code(s): D50.9 - Iron deficiency anemia, unspecified Status: Acute Assessment and Plan: Follow up in the outpatient setting. DS: Summary Hospital Course Hospital Course: Nina Aguilera is a 34 year old female with history of morbid obesity, HTN, DM since 2006, CVA (no deficits, incidental finding on MRI) who presents with chest pain. Sp negative heart cath. Adviced weight loss and baby ASA. Dm and HTN control. Pt was found to have a incidental punctate kidney stone. Time Spent with Patient Time attestation: Total time spent providing and/or coordinating discharge services: 40 minutes on day of dischrage Exam Const: General: comfortable, no acute distress, alert, awake and Physically active Nutritional Appearance: overweight and other Orientation/consciousness: patient oriented x3 HENMT: Head: normocephalic Face and sinus: normal facial exam Eyes: General: appearance normal, both eyes and all related structures Pupils: Equal, round and reactive pupils present EOM: EOMs intact bilaterally Neck: Neck: no lymphadenopathy, supple and no JVD Resp: Auscultation: clear to auscultation bilaterally Cardio: Jugular venous distension: no JVD Rate: regular rate Rhythm: regular rhythm GI: Inspection: other (flank pain on right side ) Skin: Rashes: no rashes Neuro: General: patient oriented x3 and CN's II-XI intact bilaterally Cranial nerves: Yes CN's II-XII intact bilaterally and Yes Equal, round and reactive pupils present Cognition (Neuro): normal cognition Speech: normal speech Motor exam (neuro): 5/5 motor strength present throughout Extrem: General: no pedal edema DS: Data Data Completed and Pending Labs on day of discharge: Labs from last 24 hours 07/20/20 07/20/20 21:08 16:31 POC Capillary Glucose 245 H Triglycerides 204 H Cholesterol 135 LDL Cholesterol Direct 86 HDL Direct 31 Discharge Plan Discharge Attending physician on discharge: Jhon Taveras Consulting providers: Michael Daniels Discharging Clinician: Jhon Taveras Patient Disposition: Home, Self-Care Activity: unlimited Diet: diabetic Wound Care Instructions: keep dressing dry Patient Instructions: Moderate Sedation (DC), Left Heart Catheterization (DC) Stand Alone Forms: General Discharge Information, Work/School Release IP Follow-up/Referrals: Jhon Taveras MD [Physician] - Discharge Medi
--- NOTE | 2020-07-21 13:24 | PC.NURSE ---
1240-pt given D/C orders and instructions. Questions answered and verbalized understanding. AOx4. PIV removed intact. Taken via wheelchair to waiting vehicle. No distress noted or verbalized at time of D/C.
== END 2020-07-21 12:40 | disposition home or self-care (01) ==
LOC: ANHED 15:56 → ANHCPC 17:34
PROVIDERS: Emergency Medicine; Physician Assistant; Admitting Provider Specialist; Emergency Provider Emergency Medicine; PCP Family Medicine; Visit Provider Specialist
PROC: 4A023N7 Measurement of Cardiac Sampling and Pressure, Left Heart, Percutaneous Approach (ICD-10-PCS; CPT 93452; principal; 2020-07-20 15:00)
DX: R07.89 Other chest pain (principal); N20.0 Calculus of kidney; R79.89 Other specified abnormal findings of blood chemistry; D64.9 Anemia, unspecified; D50.9 Iron deficiency anemia, unspecified; E66.01 Morbid (severe) obesity due to excess calories; E11.9 Type 2 diabetes mellitus without complications; F31.9 Bipolar disorder, unspecified; I10 Essential (primary) hypertension; K21.9 Gastro-esophageal reflux disease without esophagitis; Z86.73 Personal history of transient ischemic attack (TIA), and cerebral infarction without residual deficits; Z68.41 Body mass index [BMI] 40.0-44.9, adult
CPT/HCPCS: 36415; 71045; 74018; 74176; 80053; 80061; 81001; 81025; 82607; 82728; 82746; 83540; 83550; 83735; 84443; 84484; 85025; 85027; 85046; 85380; 85610; 85730; 93005; 93458; 96372; 96374; 96375; 96376; 99285; A9270; C1887; C1894; G0378; J1644; J1650; J1815; J2250; J2270; J2405; J3010; J7030; J7040

== ENCOUNTER 2021-03-17 10:53 | Emergency (ER) | payer OTHER, SELFPAY ==
[2021-03-17 10:58] VITALS: BP 148/94; PULSE 100; RESP 18; TEMP 36.8; O2SAT 98
[2021-03-17 11:38] VITALS: BP 141/96; BP 141/99; PULSE 80; PULSE 85
[2021-03-17 11:39] VITALS: BP 134/99; PULSE 91
--- NOTE | 2021-03-17 11:46 | ED.FEMALEGU ---
HPI - Female Genitourinary General Chief complaint: Vaginal Bleeding Stated complaint: vag bleed Time Seen by Provider: 03/17/21 11:06 Source: patient and RN notes reviewed Mode of arrival: ambulatory Limitations: no limitations History of Present Illness HPI Narrative: This a 35 year old female who presents for evaluation of heavy vaginal bleeding. Patient started with vaginal spotting yesterday morning and she developed heavy vaginal bleeding last night. She is using super tampons for her menstrual cycle. She reports she soaked through her tampon in 1.5 hour this morning. Her bleeding has decreased. She was told by her aws solution architect at [facility] to come to ER for evaluation of possible miscarriage or anemia. Her last menstural cycle was 34 days ago. She has some lower abdominal pain and mild lightheadedness. She denies history of blood transfusion in the past. She has known heavy vaginal bleeding. MD elicited complaint: vaginal bleeding Related Data Home Medications Medication Instructions Recorded Confirmed cholecalciferol (vitamin D3) 1,250 1,250 mcg PO WEEKLY 04/16/20 11/20/20 mcg (50,000 unit) capsule lamotrigine 100 mg tablet 100 mg PO BID 04/16/20 11/20/20 albuterol sulfate [ProAir HFA] 1 - 2 inh INHALATION Q4H PRN 07/19/20 11/20/20 multivitamin [Daily Multi-Vitamin] 1 tablet PO DAILY 07/19/20 11/20/20 alprazolam 0.25 mg tablet 0.25 mg PO BID tablet 11/20/20 11/20/20 bupropion HCl 150 mg 24 hr tablet, 150 mg PO QAM 11/20/20 11/20/20 extended release Allergies Allergy/AdvReac Type Severity Reaction Status Date / Time cephalexin [From Keflex] Allergy Severe Anaphylaxis Verified 03/17/21 11:01 venlafaxine [From Effexor] Allergy Intermediate Rash Verified 03/17/21 11:01 Review of Systems Review of Systems: All systems reviewed & are unremarkable except as noted in HPI and below PMFSH Past Medical History Medical History Anxiety Bipolar 1 disorder Gastroesophageal reflux disease Hypertension Type 2 diabetes mellitus Hemoglobin A1c was 7.9% on 07/18/2020. Surgical History Surgical History History of 3 sections History of cholecystectomy History of dilation and curettage History of right oophorectomy Family History Family History Mother Hypertension Diabetes mellitus Asthma Depression Anxiety Heart disease Father Diabetes mellitus Hypertension Kidney disease Heart disease Heart attack Mother Hypertension Family history of diabetes mellitus in first degree relative Grandparent Family history of cardiovascular disease Cerebrovascular accident Family history of diabetes mellitus in first degree relative Family history of lung cancer Other Family history of elevated blood lipids Family history of thyroid disease Social History Social History (Updated 01/04/21 @ 15:52 by Bettina Rainey [facility]) Social History: The patient is and lives with her and 3 children in [place]. She has a stepdaughter who is at home with them occasionally as well. He is not currently employed. Lifelong nonsmoker. No alcohol or illicit substance use. She designates her Vick as her surrogate decision maker and she wishes to be a full code. Alcohol intake: current Substance use: never Substance use type: does not use Spiritual care concerns: No Exam Const: General: no acute distress and alert Orientation/consciousness: patient oriented x3 Eyes: EOM: EOMs intact bilaterally Resp: Effort & Inspection: normal respiratory effort and no retractions Auscultation: clear to auscultation bilaterally Cardio: Rate: regular rate Rhythm: regular rhythm Heart sounds: no murmurs GI: GI Palp: Yes Soft to palpation, No Tenderness to palpation present (GI)
[2021-03-17 12:03] LABS: Basophils Percent Auto 0.5 % (0.2-1.2); Eosinophils Absolute Auto 0.1 K/mm3 (0-0.3); Eosinophils Percent Auto 0.7 % (0-4.4); Hematocrit 39.6 % (37.0-47.0); Hemoglobin 13.3 g/dL (12.0-15.0); Immature Granulocyte Absolute 0.02 K/mm3 (0.00-0.031); Immature Granulocyte Percent A 0.2 % (0-0.5); Lymphocytes Absolute Auto 2.43 K/mm3 (0.9-3.2); Lymphocytes Percent Auto 27.5 % (18.3-44.2); Mean Corpuscular HGB Conc 33.6 g/dl (32-36); Mean Corpuscular Hemoglobin 29.5 pg (26-34); Mean Corpuscular Volume 87.8 fl (80-100); Monocytes Absolute Auto 0.5 K/mm3 (0.1-0.6); Monocytes Percent Auto 5.7 % (2.6-8.5); Neutrophils Absolute Auto 5.8 K/mm3 (1.3-6.7); Neutrophils Percent Auto 65.4 % (45.5-73.1); Platelet Count Result 372 k/mm3 (150-375); Red Blood Count 4.51 M/mm3 (4.2-5.4); Red Cell Distribution Width 12.8 % (11.5-14.5); White Blood Count 8.8 K/mm3 (4.5-10.0)
== END 2021-03-17 13:37 | disposition home or self-care (01) ==
PROVIDERS: Emergency Provider General Practice; PCP Family Medicine
DX: N92.1 Excessive and frequent menstruation with irregular cycle (principal); I10 Essential (primary) hypertension; E11.9 Type 2 diabetes mellitus without complications; K21.9 Gastro-esophageal reflux disease without esophagitis; F41.9 Anxiety disorder, unspecified; F31.9 Bipolar disorder, unspecified; Z79.82 Long term (current) use of aspirin; Z79.899 Other long term (current) drug therapy; Z79.84 Long term (current) use of oral hypoglycemic drugs
CPT/HCPCS: 36415; 81025; 85025; 99283

== ENCOUNTER 2023-02-24 11:34 | Outpatient (CLI) | payer OTHER, MEDICAID, SELFPAY ==
--- NOTE | 2023-02-24 11:42 | ECG_ITS ---
Measurements Intervals [place] Rate: 98 P: 56 [place]: 169 QRS: 32 QRSD: 76 T: 35 QT: 343 QTc: 438 Interpretive Statements SINUS RHYTHM VENTRICULAR PREMATURE COMPLEX BORDERLINE ECG COMPARED TO ECG 07/19/2020 12:23:04 SINUS RHYTHM NOW PRESENT Electronically Signed On 02-24-2023 12:36:52 CDT by Catracho Reardon D.O.
== END 2023-02-24 11:35 | disposition home or self-care (01) ==
PROVIDERS: PCP Family Medicine; Visit Provider Family Medicine
DX: I10 Essential (primary) hypertension (principal); R94.31 Abnormal electrocardiogram [ECG] [EKG]
CPT/HCPCS: 93005

== ENCOUNTER → 2023-04-25 15:22 | Outpatient (CLI) | payer OTHER, MEDICAID, SELFPAY ==
--- NOTE | ~2023-04-25 | XR_ITS ---
XR chest 2V DATE: 04/25/2023 15:43 INDICATION: Cough TECHNIQUE: 2 views COMPARISON: 07/15/2020 portable AP chest 05/08/2018 two-view chest FINDINGS: There is minimal infiltrate or atelectasis at the right lung base. The lungs otherwise are clear. No pleural effusion or pulmonary vascular congestion or pneumothorax. Normal heart size. Status post cholecystectomy. IMPRESSION: Minimal infiltrate or atelectasis at the right lung base Reviewed, dictated and finalized at location L.
== END ==
PROVIDERS: PCP Family Medicine; Visit Provider Family Medicine
DX: R05.9 Cough, unspecified (principal)
CPT/HCPCS: 71046

== ENCOUNTER → 2023-05-26 09:54 | Outpatient (CLI) | payer OTHER, MEDICAID, SELFPAY ==
--- NOTE | ~2023-05-26 | XR_ITS ---
Clinical Indication: Cough PA and lateral views of the chest: Comparison: 04/25/2023 Findings: The lungs are clear, without evidence of focal consolidation or pleural effusion. Cardiome diastinal silhouette is within normal limits. Bones and soft tissues are unremarkable. Impression: Normal chest. Reviewed, dictated and finalized at location . PROOFER Impression: Normal chest.
== END ==
PROVIDERS: PCP Family Medicine; Visit Provider Family Medicine
DX: R05.9 Cough, unspecified (principal)
CPT/HCPCS: 71046

== ENCOUNTER 2023-07-03 09:53 | Outpatient (CLI) | payer OTHER, MEDICAID, SELFPAY ==
--- NOTE | ~2023-07-03 | XR_ITS ---
XR chest 2V DATE: 07/03/2023 10:18 INDICATION: Cough for several months TECHNIQUE: PA and lateral views COMPARISON: 05/26/2023 2 view chest FINDINGS: Normal heart size. No hilar or mediastinal enlargement. No pulmonary infiltrate or consolid ation, pleural effusion or pulmonary vascular congestion or pneumothorax is detected. Surgical clips, right upper quadrant, consistent with cholecystectomy. IMPRESSION: No active cardiac pulmonary disease Status post cholecystectomy Reviewed, dictated and finalized at location B. IAL SERVICE REPRESENTATIVE
[2023-07-03 10:50] LABS: Influenza A QL RT-PCR Negative (Negative); Influenza B QL RT-PCR Negative (Negative); RSV RNA, RT-PCR Negative (Negative); SARS-CoV-2 RNA PCR Positive (Negative)
== END 2023-07-03 09:54 | disposition home or self-care (01) ==
PROVIDERS: PCP Family Medicine; Visit Provider Physician Assistant
DX: R05.9 Cough, unspecified (principal); Z20.822 Contact with and (suspected) exposure to COVID-19; Z90.49 Acquired absence of other specified parts of digestive tract
CPT/HCPCS: 71046; 87637

== ENCOUNTER 2024-05-10 05:38 | Day surgery (SDC) | payer OTHER, SELFPAY ==
[2024-03-21 11:03] VITALS: BMI 25.4
[2024-04-30 15:11] VITALS: BMI 25.5
[2024-05-10 11:20] VITALS: BP 113/74; PULSE 84; RESP 18; TEMP 36.3; O2SAT 100
[2024-05-10] MEDS: LACTATED RINGERS 1,000 ML 150 ML IV CONT (11:38)
--- NOTE | 2024-05-10 12:03 | P.PNAN_ITS ---
Anes - Initial Pre Proc Eval Procedure: Operation Date: 05/10/24 13:00 Proposed Procedures p Esophagogastroduodenoscopy & Colonoscopy - Isaac Gibson MD Date/Time: 05/10/24 12:03 Surgeon: Isaac Gibson MD Pre Op Diagnosis: anemia, Epigastric pain, absence of stomach Patient Data Age: 38 Gender: F Height: 1.63 m Weight: 64.3 kg Last Vital Signs Temp 97.3 F L 05/10/24 11:20 Pulse 84 05/10/24 11:20 Resp 18 05/10/24 11:20 BP 113/74 05/10/24 11:20 Pulse Ox 100 05/10/24 11:20 O2 Del Method Room Air 05/10/24 11:20 Allergies Allergy/AdvReac Type Severity Reaction Status Date / Time cephalexin [From Keflex] Allergy Severe Anaphylaxis Verified 05/10/24 11:19 venlafaxine [From Effexor] Allergy Intermediate Rash Verified 05/10/24 11:19 ampicillin Allergy Unknown Verified 05/10/24 11:19 Penicillins Allergy Unknown Verified 05/10/24 11:19 Home Medications Medication Instructions Recorded Confirmed Type Ozempic 0.25 mg or 0.5 mg (2 mg/3 0.25 mg (0.368 mL) subcut WEEKLY 04/10/23 05/10/24 Rx mL) subcutaneous pen injector #3 mL (semaglutide) multivitamin 1 tablet PO DAILY 02/21/24 05/10/24 History albuterol sulfate 90 mcg/actuation 2 inh inhalation DAILY PRN sob 04/30/24 05/10/24 History aerosol inhaler duloxetine 30 mg capsule,delayed 30 mg PO DAILY 04/30/24 05/10/24 History release lisdexamfetamine 20 mg capsule 40 mg PO DAILY 04/30/24 05/10/24 History Patient hx anesthesia problems: none Family hx anesthesia problems: none Results Review: All pre-operative results and documents have been reviewed as part of the pre- operative evaluation. [facility] Past Medical History Medical History Ankylosing spondylitis Anxiety Bipolar 1 disorder Family history of factor V Leiden mutation Family history of MTHFR deficiency Gastroesophageal reflux disease Hypertension LAVINIA (obstructive sleep apnea) Type 2 diabetes mellitus Hemoglobin A1c was 7.9% on 07/18/2020. Surgical History Surgical History History of 3 sections History of cholecystectomy History of dilation and curettage History of right oophorectomy Family History Family History Mother Hypertension Diabetes mellitus Asthma Depression Anxiety Heart disease Father Diabetes mellitus Hypertension Kidney disease Heart disease Heart attack Mother Hypertension Family history of diabetes mellitus in first degree relative Grandparent Family history of cardiovascular disease Cerebrovascular accident Family history of diabetes mellitus in first degree relative Family history of lung cancer Other Family history of elevated blood lipids Family history of thyroid disease Social History Social History Social History: The patient is and lives with her and 3 children in [place]. She has a stepdaughter who is at home with them occasionally as well. He is not currently employed. Lifelong nonsmoker. No alcohol or illicit substance use. She designates her Vick as her surrogate decision maker and she wishes to be a full code. Smoking status: Never smoker Second hand tobacco smoke exposure: No Alcohol intake: never Substance use: never Substance use type: does not use Lack of Transportation: YES Lack of Food: Sometimes True Current Housing: I Have Housing Concerned About Future Housing: YES Difficulty Paying Gas/Electric Bills: YES Difficulty Paying for Meds: YES Currently Unemployed: YES Education: High School Diploma/GED Difficulty w/ Childcare or Family Care: YES Living arrangements: with family Occupation/Education: unemployed Gender identity (if verbalized by the patient): Female Spiritual care concerns: No Agree to blood products: Yes Anes - Eval Final PreProcedure Day of Procedure 05/10/24 12:03 Patient weight: normal Heart: regular rate and rhythm Lungs: clear to auscultation Airway: Mallampati scale class II Neurological: alert and oriented Last oral intake: >/= 8 hours ASA classification: II Emergent: no Anesthetic plan: proceed Anesthesia type and monitoring: general GIVS and standard monitoring Results Review: All pre-operative results and documents have been reviewed as part of the pre- operative evaluation. Pt w 109 pound wt loss after gastric sx/GLP1 which she has been off for several weeks. LAVINIA but no longer on CPAP since wt loss. Informed Consent: The patient's anesthetic plan and its attendant risks and benefits were d iscussed with the patient/family/POA. Questions were solicited and answers provided to the satisfaction of the patient/family/POA.
--- NOTE | 2024-05-10 12:37 | P.HP_ITS ---
History of Present Illness History of Present Illness Consent: Risks, benefits, and alternatives have been discussed and questions answered. Patient agrees to proceed with procedure. Chief complaint: anemia, Epigastric pain Narrative: Nina Aguilera is a 38 year old female with pam, no overt gib, h/o gastric sleeve, she had egd and colonoscopy in the past Review of Systems Review of Systems: All systems reviewed & are unremarkable except as noted in HPI and below PMFSH Past Medical History Medical History Ankylosing spondylitis Anxiety Bipolar 1 disorder Family history of factor V Leiden mutation Family history of MTHFR deficiency Gastroesophageal reflux disease Hypertension LAVINIA (obstructive sleep apnea) Type 2 diabetes mellitus Hemoglobin A1c was 7.9% on 07/18/2020. Surgical History Surgical History History of 3 sections History of cholecystectomy History of dilation and curettage History of right oophorectomy Family History Family History Mother Hypertension Diabetes mellitus Asthma Depression Anxiety Heart disease Father Diabetes mellitus Hypertension Kidney disease Heart disease Heart attack Mother Hypertension Family history of diabetes mellitus in first degree relative Grandparent Family history of cardiovascular disease Cerebrovascular accident Family history of diabetes mellitus in first degree relative Family history of lung cancer Other Family history of elevated blood lipids Family history of thyroid disease Social History Social History Social History: The patient is and lives with her and 3 children in [place]. She has a stepdaughter who is at home with them occasionally as well. He is not currently employed. Lifelong nonsmoker. No alcohol or illicit substance use. She designates her Vick as her surrogate decision maker and she wishes to be a full code. Smoking status: Never smoker Second hand tobacco smoke exposure: No Alcohol intake: never Substance use: never Substance use type: does not use Lack of Transportation: YES Lack of Food: Sometimes True Current Housing: I Have Housing Concerned About Future Housing: YES Difficulty Paying Gas/Electric Bills: YES Difficulty Paying for Meds: YES Currently Unemployed: YES Education: High School Diploma/GED Difficulty w/ Childcare or Family Care: YES Living arrangements: with family Occupation/Education: unemployed Gender identity (if verbalized by the patient): Female Spiritual care concerns: No Agree to blood products: Yes Meds Home Medications and Allergies Home Medications Medication Instructions Recorded Confirmed Type Ozempic 0.25 mg or 0.5 mg (2 mg/3 0.25 mg (0.368 mL) subcut WEEKLY 04/10/23 05/10/24 Rx mL) subcutaneous pen injector #3 mL (semaglutide) multivitamin 1 tablet PO DAILY 02/21/24 05/10/24 History albuterol sulfate 90 mcg/actuation 2 inh inhalation DAILY PRN sob 04/30/24 05/10/24 History aerosol inhaler duloxetine 30 mg capsule,delayed 30 mg PO DAILY 04/30/24 05/10/24 History release lisdexamfetamine 20 mg capsule 40 mg PO DAILY 04/30/24 05/10/24 History Allergies Allergy/AdvReac Type Severity Reaction Status Date / Time cephalexin [From Keflex] Allergy Severe Anaphylaxis Verified 05/10/24 11:19 venlafaxine [From Effexor] Allergy Intermediate Rash Verified 05/10/24 11:19 ampicillin Allergy Unknown Verified 05/10/24 11:19 Penicillins Allergy Unknown Verified 05/10/24 11:19 Vital Signs Vital Signs - 24 hr 05/10/24 11:20 Temperature 97.3 F L Pulse Rate 84 Respiratory Rate 18 Blood Pressure 113/74 Pulse Oximetry 100 Oxygen Delivery Room Air Exam Const: General: comfortable and no acute distress HENMT: Face/Nose/Sinus: Normal nares present Eyes: General: appearance normal, both eyes and all related structures Neck: Neck: no JVD Resp: Auscultation: clear to auscultation bilaterally Cardio: Rate: regular rate Rhythm: regular rhythm GI: Inspection: non-distended GI Palp: Yes Soft to palpation Skin: General skin exam: normal color Neuro: General: gait normal Speech: normal speech Extrem: General: normal to inspection Psych: Mental Status: mental status grossly normal Assessment and Plan Assessment and plan (1) Iron deficiency anemia: Code(s): D50.9 - Iron deficiency anemia, unspecified Status: Acute Assessment and Plan: egd and colonoscopy to check if gi source serology for celiac negative
[2024-05-10 13:10] VITALS: BP 99/59; PULSE 76; RESP 15; O2SAT 100
[2024-05-10 13:20] VITALS: BP 112/68; PULSE 70; RESP 15; O2SAT 100
[2024-05-10 13:30] VITALS: BP 116/75; PULSE 72; RESP 17; O2SAT 100
[2024-05-13 10:02] LABS: HPYLORIRESULT Negative (Negative)
[2024-05-13 10:07] LABS: BEDSIDEPREGUCG Negative (Negative)
== END 2024-05-10 13:40 | disposition home or self-care (01) ==
PROVIDERS: PCP Family Medicine; Referring Provider Nurse Practitioner; Visit Provider Internal Medicine Gastroenterology
PROC: 0DJ08ZZ Inspection of Upper Intestinal Tract, Via Natural or Artificial Opening Endoscopic (ICD-10-PCS; CPT 43235; principal; 2024-05-10 13:00)
DX: D50.9 Iron deficiency anemia, unspecified (principal); K64.8 Other hemorrhoids; E11.9 Type 2 diabetes mellitus without complications; K21.9 Gastro-esophageal reflux disease without esophagitis; G47.33 Obstructive sleep apnea (adult) (pediatric); F31.9 Bipolar disorder, unspecified; F41.9 Anxiety disorder, unspecified; Z79.85 Long-term (current) use of injectable non-insulin antidiabetic drugs; Z79.51 Long term (current) use of inhaled steroids; Z98.84 Bariatric surgery status
CPT/HCPCS: 45378; 43239; 87081; 88305; J2003; J2704; J7120

== ENCOUNTER 2024-08-27 00:55 | Day surgery (SDC) | payer BC, OTHER, SELFPAY ==
--- NOTE | 2024-08-27 13:15 | WPDANESEPPF ---
Anes - Initial Pre Proc Eval Procedure: Operation Date: 08/27/24 14:30 Proposed Procedures p Esophagogastroduodenoscopy - Isaac Gibson MD Date/Time: 08/27/24 13:15 Surgeon: Isaac Gibson MD Pre Op Diagnosis: Dysphagia,Iron deficiency anemia Patient Data Age: 38 Gender: F Height: Weight: Allergies Allergy/AdvReac Type Severity Reaction Status Date / Time cephalexin (From Keflex) Allergy Severe Anaphylaxis Verified 08/14/24 11:10 venlafaxine (From Effexor) Allergy Intermediate Rash Verified 08/14/24 11:10 ampicillin Allergy Unknown Verified 08/14/24 11:10 duloxetine Allergy Swelling Verified 08/14/24 11:30 Penicillins Allergy Unknown Verified 08/14/24 11:10 Home Medications ?Medication ?Instructions ?Recorded ?Confirmed ?Type Ozempic 0.25 mg or 0.5 mg (2 mg/3 0.25 mg (0.368 mL) subcut WEEKLY 04/10/23 08/14/24 Rx mL) subcutaneous pen injector #3 mL (semaglutide) multivitamin 1 tablet PO DAILY 02/21/24 08/14/24 History albuterol sulfate 90 mcg/actuation 2 inh inhalation DAILY PRN sob 04/30/24 08/14/24 History aerosol inhaler duloxetine 30 mg capsule,delayed 30 mg PO DAILY 04/30/24 08/14/24 History release lisdexamfetamine 20 mg capsule 40 mg PO DAILY 04/30/24 08/14/24 History omeprazole 40 mg capsule,delayed 40 mg PO .daily #30 caps 05/10/24 08/14/24 Rx release linaclotide 290 mcg capsule 290 mcg PO QAM #90 caps 06/04/24 08/14/24 Rx (Linzess) Patient hx anesthesia problems: none Family hx anesthesia problems: none Results Review: All pre-operative results and documents have been reviewed as part of the pre-operative evaluation. [facility] Past Medical History Medical History Ankylosing spondylitis Family history of factor V Leiden mutation Family history of MTHFR deficiency LAVINIA (obstructive sleep apnea) Anxiety Gastroesophageal reflux disease Type 2 diabetes mellitus Hemoglobin A1c was 7.9% on 07/18/2020. Bipolar 1 disorder Hypertension Surgical History Surgical History History of dilation and curettage History of 3 sections History of right oophorectomy History of cholecystectomy Family History Family History Mother Hypertension Diabetes mellitus Asthma Depression Anxiety Heart disease Father Diabetes mellitus Hypertension Kidney disease Heart disease Heart attack Mother Hypertension Family history of diabetes mellitus in first degree relative Grandparent Family history of cardiovascular disease Cerebrovascular accident Family history of diabetes mellitus in first degree relative Family history of lung cancer Other Family history of elevated blood lipids Family history of thyroid disease Social History Social History Social History: The patient is and lives with her and 3 children in [place]. She has a stepdaughter who is at home with them occasionally as well. He is not currently employed. Lifelong nonsmoker. No alcohol or illicit substance use. She designates her Vick as her surrogate decision maker and she wishes to be a full code. Smoking status: Never smoker Second hand tobacco smoke exposure: No Alcohol intake: never Substance use: never Substance use type: does not use Lack of Transportation: YES Lack of Food: Sometimes True Current Housing: I Have Housing Concerned About Future Housing: YES Difficulty Paying Gas/Electric Bills: YES Difficulty Paying for Meds: YES Currently Unemployed: YES Education: High School Diploma/GED Difficulty w/ Childcare or Family Care: YES Living arrangements: with family Occupation/Education: unemployed Gender identity (if verbalized by the patient): Female Spiritual care concerns: No Agree to blood products: Yes Anes - Eval Final PreProcedure Day of Procedure 08/27/24 13:15 Patient weight: normal Heart: regular rate and rhythm Lungs: clear to auscultation Airway: Mallampati scale class II Neurological: alert and oriented Last oral intake: >/= 8 hours ASA classification: III Emergent: no Anesthetic plan: proceed Anesthesia type and monitoring: general GIVS and standard monitoring Results Review: All pre-operative results and documents have been reviewed as part of the pre-operative evaluation. Informed Consent: The patient's anesthetic plan and its attendant risks and benefits were discussed with the patient/family/POA. Questions were solicited and answers provided to the satisfaction of the patient/family/POA.
[2024-08-27 13:22] VITALS: BP 144/92; PULSE 80; RESP 16; TEMP 36.2; O2SAT 100
[2024-08-27] MEDS: LACTATED RINGERS 1,000 ML 150 ML IV CONT (13:25)
--- NOTE | 2024-08-27 13:25 | PM.HPGS ---
History of Present Illness History of Present Illness Consent: Risks, benefits, and alternatives have been discussed and questions answered. Patient agrees to proceed with procedure. Chief complaint: Dysphagia,Iron deficiency anemia Narrative: Nina Aguilera is a 38 year old female with pam, had EGD few months ago that showed ulcerative gastritis, also h/o dysphagia (son recently diagnosed with EoE). Review of Systems Review of Systems: All systems reviewed & are unremarkable except as noted in HPI and below PMFSH Past Medical History Medical History Ankylosing spondylitis Family history of factor V Leiden mutation Family history of MTHFR deficiency LAVINIA (obstructive sleep apnea) Anxiety Gastroesophageal reflux disease Type 2 diabetes mellitus Hemoglobin A1c was 7.9% on 07/18/2020. Bipolar 1 disorder Hypertension Surgical History Surgical History History of dilation and curettage History of 3 sections History of right oophorectomy History of cholecystectomy Family History Family History Mother Hypertension Diabetes mellitus Asthma Depression Anxiety Heart disease Father Diabetes mellitus Hypertension Kidney disease Heart disease Heart attack Mother Hypertension Family history of diabetes mellitus in first degree relative Grandparent Family history of cardiovascular disease Cerebrovascular accident Family history of diabetes mellitus in first degree relative Family history of lung cancer Other Family history of elevated blood lipids Family history of thyroid disease Social History Social History Social History: The patient is and lives with her and 3 children in [place]. She has a stepdaughter who is at home with them occasionally as well. He is not currently employed. Lifelong nonsmoker. No alcohol or illicit substance use. She designates her Vick as her surrogate decision maker and she wishes to be a full code. Smoking status: Never smoker Second hand tobacco smoke exposure: No Alcohol intake: never Substance use: never Substance use type: does not use Lack of Transportation: YES Lack of Food: Sometimes True Current Housing: I Have Housing Concerned About Future Housing: YES Difficulty Paying Gas/Electric Bills: YES Difficulty Paying for Meds: YES Currently Unemployed: YES Education: High School Diploma/GED Difficulty w/ Childcare or Family Care: YES Living arrangements: with family Occupation/Education: unemployed Gender identity (if verbalized by the patient): Female Spiritual care concerns: No Agree to blood products: Yes Meds Home Medications and Allergies Home Medications ?Medication ?Instructions ?Recorded ?Confirmed ?Type Ozempic 0.25 mg or 0.5 mg (2 mg/3 0.25 mg (0.368 mL) subcut WEEKLY 04/10/23 08/27/24 Rx mL) subcutaneous pen injector #3 mL (semaglutide) multivitamin 1 tablet PO DAILY 02/21/24 08/27/24 History albuterol sulfate 90 mcg/actuation 2 inh inhalation DAILY PRN sob 04/30/24 08/14/24 History aerosol inhaler duloxetine 30 mg capsule,delayed 30 mg PO DAILY 04/30/24 08/14/24 History release lisdexamfetamine 20 mg capsule 40 mg PO DAILY 04/30/24 08/27/24 History omeprazole 40 mg capsule,delayed 40 mg PO .daily #30 caps 05/10/24 08/27/24 Rx release linaclotide 290 mcg capsule 290 mcg PO QAM #90 caps 06/04/24 08/27/24 Rx (Linzess) Allergies Allergy/AdvReac Type Severity Reaction Status Date / Time cephalexin (From Keflex) Allergy Severe Anaphylaxis Verified 08/27/24 13:20 venlafaxine (From Effexor) Allergy Intermediate Rash Verified 08/27/24 13:20 ampicillin Allergy Unknown Verified 08/27/24 13:20 duloxetine Allergy Swelling Verified 08/27/24 13:20 Penicillins Allergy Unknown Verified 08/27/24 13:20 Vital Signs Vital Signs - 24 hr 08/27/24 13:22 Temperature 97.2 F L Pulse Rate 80 Respiratory Rate 16 Blood Pressure 144/92 H Pulse Oximetry 100 Oxygen Delivery Room Air Exam Const: General: comfortable and no acute distress HENMT: Face/Nose/Sinus: Normal nares present Eyes: General: appearance normal, both eyes and all related structures Neck: Neck: no JVD Resp: Auscultation: clear to auscultation bilaterally Cardio: Rate: regular rate Rhythm: regular rhythm GI: Inspection: non-distended GI Palp: Yes Soft to palpation Skin: General skin exam: normal color Neuro: General: gait normal Speech: normal speech Extrem: General: normal to inspection Psych: Mental Status: mental status grossly normal Assessment and Plan Assessment and plan (1) Iron deficiency anemia: Qualifiers: Iron deficiency anemia type: unspecified iron deficiency Qualified Code(s): D50.9 - Iron deficiency anemia, unspecified Code(s): D50.9 - Iron deficiency anemia, unspecified Status: Acute Assessment and Plan: egd again (2) Gastritis: Qualifiers: Chronicity: acute Gastritis bleeding: with bleeding Code(s): K29.70 - Gastritis, unspecified, without bleeding Status: Acute (3) Dysphagia: Code(s): R13.10 - Dysphagia, unspecified Status: Acute Assessment and Plan: will get biopsies to assess for eoe
[2024-08-27 13:27] LABS: Glucose Point of Care 85 mg/dl (65-105)
[2024-08-27 13:36] VITALS: BP 104/65; PULSE 79; RESP 21; O2SAT 99
[2024-08-27 13:37] LABS: BEDSIDEPREGUCG Negative (Negative)
[2024-08-27 13:46] VITALS: BP 104/73; PULSE 73; RESP 18; O2SAT 99
[2024-08-27 13:56] VITALS: BP 120/78; PULSE 70; RESP 17; O2SAT 100
== END 2024-08-27 14:05 | disposition home or self-care (01) ==
PROVIDERS: PCP Family Medicine; Referring Provider Nurse Practitioner; Visit Provider Internal Medicine Gastroenterology
PROC: 0DJ08ZZ Inspection of Upper Intestinal Tract, Via Natural or Artificial Opening Endoscopic (ICD-10-PCS; CPT 43239; principal; 2024-08-27 14:30)
DX: K31.89 Other diseases of stomach and duodenum (principal); K21.00 Gastro-esophageal reflux disease with esophagitis, without bleeding; D50.9 Iron deficiency anemia, unspecified; E11.9 Type 2 diabetes mellitus without complications; I10 Essential (primary) hypertension; G47.33 Obstructive sleep apnea (adult) (pediatric); F41.9 Anxiety disorder, unspecified; F31.9 Bipolar disorder, unspecified; Z79.85 Long-term (current) use of injectable non-insulin antidiabetic drugs; Z79.51 Long term (current) use of inhaled steroids; Z98.890 Other specified postprocedural states; Z90.49 Acquired absence of other specified parts of digestive tract; Z80.1 Family history of malignant neoplasm of trachea, bronchus and lung; Z82.49 Family history of ischemic heart disease and other diseases of the circulatory system
CPT/HCPCS: 43239; 82948; 88305; J2704; J7120